=== PATIENT | male | born 1970 | race Caucasian/White ===

== ENCOUNTER 2021-01-29 19:03 | Inpatient (IN) | payer MEDICAID ==
[~2021-01-29] VITALS: Ht 188 cm; Wt 119.3 kg
--- NOTE | 2021-01-29 19:20 | NUR ---
PT IN SOFT 4-POINT RESTRAINTS DUE TO COMBATIVE BEHAVIOR ENROUTE TO ER. PT STILL CONFUSED AND HAD RIPPED OUT IV ENROUTE WELL. RESTRAINTS CONITINUED. DR. CEJA TO PUT IN ORDER.
[2021-01-29] MEDS ORDERED: haloperidol lactate 5mg/ml inj IM ONE (19:40)
[2021-01-29 20:02] LABS: BASOPHILS # (AUTO) 0.1 X10'3 (0-0.2); BASOPHILS % (AUTO) 0.8 % (0-1); EOSINOPHILS % (AUTO) 0.4 % (0-6); HEMOGLOBIN 14.1 g/dl (14.0-17.9); LYMPHOCYTES # (AUTO) 1.2 X10'3 (1.1-4.8); LYMPHOCYTES % (AUTO) 14.5 % (21-51); MEAN CORPUSCULAR HEMOGLOBIN 32.6 PG (27.0-31.0); MEAN CORPUSCULAR HGB CONC 33.4 g/dL (33.0-36.5); MEAN CORPUSCULAR VOLUME 97.6 FL (78-98); MEAN PLATELET VOLUME 9.1 FL (7.4-10.4); MONOCYTES # (AUTO) 0.6 X10'3 (0-0.9); MONOCYTES % (AUTO) 6.8 % (2-12); NEUTROPHILS # (AUTO) 6.6 X10'3 (1.8-7.7); NEUTROPHILS % (AUTO) 77.5 % (42-75); PLATELET COUNT 132 X10'3 (140-440); RED BLOOD COUNT 4.31 X10'6 (4.70-6.10); RED CELL DISTRIBUTION WIDTH 15.3 % (11.5-14.5); WHITE BLOOD COUNT 8.5 X10'3 (4.5-11.0)
[2021-01-29 20:13] LABS: ANION GAP 10 (8-16); BILIRUBIN,TOTAL 0.4 MG/DL (0.1-1.0); BLOOD UREA NITROGEN 99 MG/DL (7-18); BUN/CREATININE RATIO 14.6 (5.4-32.0); CALCIUM 7.3 MG/DL (8.5-10.1); CHLORIDE 111 MMOL/L (99-107); CREATININE 6.79 MG/DL (0.60-1.10); GLUCOSE 105 MG/DL (70-104); POTASSIUM 4.5 MMOL/L (3.5-5.1); SODIUM 146 MMOL/L (135-145); TOTAL CARBON DIOXIDE 24.6 MMOL/L (24-32); TOTAL PROTEIN 6.6 G/DL (6.4-8.2); eGFR 9 ML/MIN
[2021-01-29 20:14] LABS: ALANINE AMINOTRANSFERASE 20 U/L (12-78); ALBUMIN 2.9 G/DL (3.4-5.0); ALBUMIN/GLOBULIN RATIO 0.8 (1.1-1.5); ALKALINE PHOSPHATASE 81 IU/L (46-116); ASPARTATE AMINO TRANSFERASE 24 U/L (10-37)
[2021-01-29 20:22] LABS: CREATINE KINASE 574 U/L (39-308)
[2021-01-29 20:24] LABS: ETHANOL < 0.010 GM/DL (0.0-0.010)
[2021-01-29 21:09] LABS: ABG BASE EXCESS -3.1 mmol/L (-2.0-2.0); ABG HCO3 24.6 mmol/L (22.0-26.0); ABG OXYGEN SATURATION 97.3 % (94-97); ABG PCO2 (T) 55.3 mmHg (35.0-48.0); ABG PO2 (T) 112.1 mmHg (75.0-100.0); ALLEN'S TEST POSITIVE; FCOHb 1.7 % (0.0-3.9); FLOW 10 L/min; FMetHb 0.3 % (0.0-1.5); FO2Hb 95.4 % (94-97); PATIENT TEMPERATURE 37.2; TOTAL HEMOGLOBIN 14.6 G/dl (14.0-18.0)
--- NOTE | 2021-01-29 21:15 | NUR ---
PT IN 4-POINT SOFT RESTRAINTS, CSM INTACT. PT TWITCHING AND STILL ALOC AT THIS TIME. PT BEING MONITORED CLOSELY FOR SAFETY.
[2021-01-29] MEDS ORDERED: magnesium hydroxide 30ml (MOM) UD suspension PO PRN (21:40)
[2021-01-29] MEDS ORDERED: acetaminophen 325mg tablet PO PRN (21:40)
[2021-01-29] MEDS ORDERED: mag hydrox/Alum hydrox/simeth 30ml oral suspension PO PRN (21:40)
--- NOTE | 2021-01-29 21:40 | NUR ---
RESPIRATORY ADVISED DUE TO PT ABG RESULTS THAT PT SHOULD BE ON SIMPLE FACE MASK INSTAEAD OF NON-REBREATHER. RESPIRATORY KEPT PT ON 10L SIMPLE FACE MASK.
--- NOTE | 2021-01-29 21:55 | NUR ---
DR. CEJA TOOK PT O2 DOWN TO 3LPM
--- NOTE | 2021-01-29 22:02 | NUR ---
PT AT BEDSIDE, STATES PT MAY HAVE STARTED TAKING A NEW MEDICATION. PT HAS NOT TAKEN HIS NORMAL MEDICATIONS SINCE FRIDAY. PT ALSO STATES HE DRINKS DAILY 1/3 OF A 5TH OF WHISKEY. PT HAS NOT HAD A DRINK SINCE FRIDAY. PT CONINTUES TO TWITCH AND HAVE PERIODS OF RIGIDITY. PT NOW ANSWERING QUESTIONS APPROPRIATELY AT TIMES. VERBAL ORDER FOR ATIVAN GOTTEN FROM DR. CEJA
[2021-01-29] MEDS ORDERED: LORazepam 2 mg/ml vial IV ONE (22:05)
--- NOTE | 2021-01-29 22:07 | NUR ---
O2 TITRATED TO 5 LTR PER O2 SATS 87%
--- NOTE | 2021-01-29 22:10 | NUR ---
VERBAL ORDER FROM HOSPITALIST FOR 500 CC NS BOLUS AND MCCABE CATHETER
[2021-01-29] MEDS ORDERED: normal saline 1000ML IV soln IVB ONE (22:15)
[2021-01-29] MEDS: normal saline 1000ml 1,000 ML IV SCH (22:17)
[2021-01-29] MEDS ORDERED: METO-539 PO (22:33)
[2021-01-29] MEDS ORDERED: AMIT-189 PO (22:33)
[2021-01-29] MEDS ORDERED: LYR25C PO (22:33)
[2021-01-29] MEDS ORDERED: QUET-1 PO (22:33)
[2021-01-29] MEDS ORDERED: METO50TA7 PO (22:33)
[2021-01-29] MEDS ORDERED: ATOR10TA87 PO (22:33)
[2021-01-29] MEDS ORDERED: AMLO5TAB PO (22:33)
[2021-01-29] MEDS ORDERED: DULO-31 PO (22:33)
[2021-01-29] MEDS ORDERED: sodium bicarbonate (8.4%) 1 mEq/ml syringe IV ONE (22:35)
[2021-01-29] MEDS ORDERED: ATOR20TA PO (22:35)
[2021-01-29] MEDS ORDERED: thiamine inj. 100 MG in normal saline 100ml IV soln 100 ML IV ONE (22:35)
[2021-01-29] MEDS ORDERED: LISI1TAB51 PO (22:35)
[2021-01-29 22:55] LABS: URINE AMPHETAMINE SCREEN NEGATIVE (Neg); URINE BARBITUATE SCREEN NEGATIVE (Neg); URINE BENZODIAZEPINES SCREEN POSITIVE (Neg); URINE CANNABINOID SCREEN NEGATIVE (Neg); URINE COCAINE SCREEN NEGATIVE (Neg); URINE METHADONE SCREEN NEGATIVE (Neg); URINE OPIATE SCREEN POSITIVE (Neg); URINE PHENCYCLIDINE SCREEN NEGATIVE (Neg)
[2021-01-29] MEDS ORDERED: MORP30TA PO (22:57)
--- NOTE | 2021-01-29 23:00 | NUR ---
CSM INTACT FOR PT STILL IN RESTRAINTS. PT ABLE TO ANSWER QUESTIONS AT TIMES BUT OVERALL STILL MOSTLY CONFUSED.
[2021-01-29] MEDS: LORazepam 2 mg/ml vial IV PRN (23:27)
--- NOTE | 2021-01-30 01:30 | NUR ---
CSM INTACT IN ALL EXTREMITIES. PT IN RESTRAINTS STILL FOR ALOC AND PULLING AT LINES.
[2021-01-30] MEDS ORDERED: MSC30T PO (02:04)
[2021-01-30] MEDS ORDERED: PREG150C46 PO ×2 (02:07)
[2021-01-30] MEDS: LORazepam 2 mg/ml vial IV PRN ×7 (02:11→22:09)
--- NOTE | 2021-01-30 02:36 | NUR ---
PT FOUND SITTING ON END OF BED, STILL IN RESTRAINTS. PT ADVISED TO LAY DOWN AND PT WAS COOPERATIVE. CSM INTACT AND PT IN RESTRAINTS STILL. WILL TRY TO UNLATCH RESTRAINTS IF PT BEHAVIOR ALLOWS.
--- NOTE | 2021-01-30 02:39 | NUR ---
PT FEET RELEASED FROM RESTRAINTS. WILL CONTINUE TO MONITOR.
[2021-01-30 04:14] LABS: BASOPHILS # (AUTO) 0.1 X10'3 (0-0.2); LYMPHOCYTES # (AUTO) 1.7 X10'3 (1.1-4.8); MEAN PLATELET VOLUME 9.5 FL (7.4-10.4); PLATELET COUNT 139 X10'3 (140-440); RED BLOOD COUNT 4.35 X10'6 (4.70-6.10)
[2021-01-30 04:15] LABS: BASOPHILS % (AUTO) 0.9 % (0-1); EOSINOPHILS # (AUTO) 0.1 X10'3 (0-0.9); EOSINOPHILS % (AUTO) 0.6 % (0-6); HEMATOCRIT 41.8 % (42.0-52.0); HEMOGLOBIN 14.1 g/dl (14.0-17.9); LYMPHOCYTES % (AUTO) 15.2 % (21-51); MEAN CORPUSCULAR HEMOGLOBIN 32.4 PG (27.0-31.0); MEAN CORPUSCULAR HGB CONC 33.7 g/dL (33.0-36.5); MEAN CORPUSCULAR VOLUME 96.2 FL (78-98); MONOCYTES # (AUTO) 0.8 X10'3 (0-0.9); MONOCYTES % (AUTO) 7.5 % (2-12); NEUTROPHILS # (AUTO) 8.5 X10'3 (1.8-7.7); NEUTROPHILS % (AUTO) 75.8 % (42-75); RED CELL DISTRIBUTION WIDTH 15.3 % (11.5-14.5); WHITE BLOOD COUNT 11.2 X10'3 (4.5-11.0)
[2021-01-30] MEDS: normal saline 1000ml 1,000 ML IV SCH ×2 (04:21→14:34)
[2021-01-30 05:25] LABS: ALANINE AMINOTRANSFERASE 18 U/L (12-78); ALBUMIN/GLOBULIN RATIO 0.8 (1.1-1.5); ANION GAP 10 (8-16); ASPARTATE AMINO TRANSFERASE 27 U/L (10-37); BILIRUBIN,TOTAL 0.4 MG/DL (0.1-1.0); BLOOD UREA NITROGEN 83 MG/DL (7-18); BUN/CREATININE RATIO 23.2 (5.4-32.0); CALCIUM 7.8 MG/DL (8.5-10.1); CHLORIDE 113 MMOL/L (99-107); CREATININE 3.57 MG/DL (0.60-1.10); GLUCOSE 103 MG/DL (70-104); MAGNESIUM 1.9 MG/DL (1.5-2.4); PHOSPHORUS 3.4 MG/DL (2.3-4.5); POTASSIUM 4.3 MMOL/L (3.5-5.1); SODIUM 151 MMOL/L (135-145); TOTAL CARBON DIOXIDE 28.3 MMOL/L (24-32); TOTAL PROTEIN 6.7 G/DL (6.4-8.2); eGFR 18 ML/MIN
[2021-01-30 05:26] LABS: ALKALINE PHOSPHATASE 82 IU/L (46-116); AMYLASE 93 U/L (25-115); LIPASE 77 U/L (73-393)
--- NOTE | 2021-01-30 06:38 | NUR ---
Patient asleep at this time, on two point soft restraint, capillary refill less than 2 seconds, oxygen mask 6L sating 96-99%.
--- NOTE | 2021-01-30 07:50 | NUR ---
1500 clear urine out from braun.
[2021-01-30] MEDS: multivitamins, therapeutics tablet PO SCH (08:00)
[2021-01-30] MEDS: folic acid 1mg/0.2ml inj IV SCH (08:00)
[2021-01-30] MEDS ORDERED: folic acid inj. 2 MG, thiamine inj. 100 MG, MVI, adult No.4 with vit. K 10 ML in dextro... IV SCH ×4 (08:00)
[2021-01-30] MEDS: thiamine inj. 100 MG in normal saline 100ml IV soln 100 ML IV SCH (08:19)
[2021-01-30] MEDS: heparin, porcine 5000 units/ml vial SQ SCH ×2 (08:19→20:10)
[2021-01-30] MEDS: morphine 2 MG/ML inj. syringe IV PRN ×3 (10:37→21:04)
[2021-01-30 11:00] VITALS: BP 135/82
--- NOTE | 2021-01-30 13:43 | NUR ---
While Primary RN Jace was on lunch I was watching his patients as resource RN. I went into patients room to do restraints with at bedside. Patients wrist restraints released and skin assessed done patient skin is intact and no signs of skin issues. Patient was diaphoretic and having upper body twitching. Patient is able to answer questions but very confused. At this time patient made a statement that was not very clear due to him having a simple oxygen mask on and somewhat slurring his words. Patient statement was something to the effect of him wanting to shoot himself. I asked patient why he would want to harm himself and he stated " because nobody cares.) I spoke to Tegan with delinquency prevention social worker who is aware when I went into ask patient again if he wanted to harm himself? Patient stated, "No" I asked patient if he wanted to harm others and he stated "No", I asked him if he has a history of depression patient stated, "No" I asked patient if he takes medication for depression, Patient stated "No". I told patient he can go ahead and go to sleep to [facility], patient again stated, "No". I called Tegan with visitor services assistant back and she stated at this time she does not feel we need a sitter on patient. However, she feels we should continue to evaluate patient for suicidal ideations. Primary RN Jace torres and stripper apprenticeRADHA torres.
[2021-01-30] MEDS: ondansetron/PF 4mg/2ml inj IV PRN (15:17)
--- NOTE | 2021-01-30 18:25 | NUR ---
Patient in room BOB 354. I have received report from RADHA Mccormick and had the opportunity to ask questions and assume patient care.
[2021-01-30 19:00] VITALS: BP 171/96
[2021-01-30] MEDS ORDERED: ondansetron/PF 4mg/2ml inj IV ONE (20:10)
--- NOTE | 2021-01-30 22:00 | NUR ---
Pt thrashing in bed and breaking restraints. Ativan and pain medications administered with no change. Security in room to assist with replacement of restraints from behavioral health. MD notifed, requesting ABG, chest xray and 0.1 clonidine and start bed side swallow as patient has not had any PO intake as of yet. Several from RT came up to get ABG, unable due to patients strength and thrashing. MD notified. Received 1x order ativan. Patient calmed and ABG and cxr obtained. Results called to MD. Will place order for 1x abx. RT increased O2 to 6L NC and added humidification. Patient not will to attempt drink or take clonidine. MD aware.
[2021-01-30] MEDS ORDERED: cloNIDine 0.1 mg tablet PO ONE (22:05)
[2021-01-30] MEDS ORDERED: LORazepam 2 mg/ml vial IV ONE (22:20)
[2021-01-30 22:25] VITALS: BP 160/91
[2021-01-30 22:32] LABS: ABG OXYGEN SATURATION 87.2 % (94-97); ABG PCO2 (T) 50.6 mmHg (35.0-48.0); ABG PO2 (T) 56.2 mmHg (75.0-100.0); ALLEN'S TEST POSITIVE; FLOW 5 L/min; FMetHb 0.1 % (0.0-1.5); FO2Hb 86.2 % (94-97); PATIENT TEMPERATURE 38.3; TOTAL HEMOGLOBIN 15.3 G/dl (14.0-18.0)
[2021-01-30] MEDS ORDERED: CefTRIAXone 2gm/D5W 50ml BAG 50 ML IV ONE (23:20)
[2021-01-31] VITALS (8 sets, daily range): BP systolic 150–214; BP diastolic 87–183
--- NOTE | 2021-01-31 00:30 | NUR ---
Pt continues to thrash around in bed after a short rest. SBP sustaining 190's to 207. MD notified. Received order for hydralazine scheduled for 24 hours.
[2021-01-31] MEDS: hydrALAZINE 20mg/ml inj. IV SCH ×5 (00:36→21:11)
[2021-01-31] MEDS: normal saline 1000ml 1,000 ML IV SCH (00:41)
[2021-01-31] MEDS: LORazepam 2 mg/ml vial IV PRN ×17 (00:41→23:23)
--- NOTE | 2021-01-31 01:39 | NUR ---
Pt continues to fight restraints, is now spitting, speaking english to rim fire charger operator. Unable to reassess BP at this time. Will continue to monitor.
[2021-01-31] MEDS: morphine 2 MG/ML inj. syringe IV PRN ×4 (02:35→17:37)
--- NOTE | 2021-01-31 06:31 | NUR ---
Problems reprioritized. Patient report given, questions answered & plan of care reviewed with RADHA Mcgee.
--- NOTE | 2021-01-31 06:35 | NUR ---
Patient in room BOB 354. I have received report from RADHA Mauro and had the opportunity to ask questions and assume patient care.
--- NOTE | 2021-01-31 06:42 | NUR ---
PAGER ID: [phone] MESSAGE: [id number]- Satish Harrison- only getting Ativan q2hr 1mg. Needs more often. Very strong and pulling on restraints. Ok to put on severe etoh protocol? Thank you- Everardo [phone]
[2021-01-31 06:43] LABS: BASOPHILS # (AUTO) 0.1 X10'3 (0-0.2); BASOPHILS % (AUTO) 1.3 % (0-1); EOSINOPHILS % (AUTO) 0.1 % (0-6); HEMATOCRIT 44.2 % (42.0-52.0); HEMOGLOBIN 14.7 g/dl (14.0-17.9); LYMPHOCYTES # (AUTO) 1.6 X10'3 (1.1-4.8); MEAN CORPUSCULAR HEMOGLOBIN 32.2 PG (27.0-31.0); MEAN CORPUSCULAR HGB CONC 33.2 g/dL (33.0-36.5); MEAN CORPUSCULAR VOLUME 97.2 FL (78-98); MEAN PLATELET VOLUME 9.6 FL (7.4-10.4); MONOCYTES # (AUTO) 0.8 X10'3 (0-0.9); MONOCYTES % (AUTO) 8.5 % (2-12); NEUTROPHILS # (AUTO) 6.5 X10'3 (1.8-7.7); NEUTROPHILS % (AUTO) 72.1 % (42-75); PLATELET COUNT 131 X10'3 (140-440); RED BLOOD COUNT 4.55 X10'6 (4.70-6.10); RED CELL DISTRIBUTION WIDTH 15.3 % (11.5-14.5); WHITE BLOOD COUNT 9.1 X10'3 (4.5-11.0)
[2021-01-31] MEDS ORDERED: thiamine inj. 100 MG in normal saline 100ml IV soln 100 ML IV ONE (06:45)
[2021-01-31] MEDS ORDERED: haloperidol 5mg tablet PO PRN (06:45)
[2021-01-31 07:03] LABS: ALANINE AMINOTRANSFERASE 28 U/L (12-78); ALBUMIN 3.4 G/DL (3.4-5.0); ALBUMIN/GLOBULIN RATIO 0.9 (1.1-1.5); ALKALINE PHOSPHATASE 77 IU/L (46-116); AMYLASE 84 U/L (25-115); ASPARTATE AMINO TRANSFERASE 36 U/L (10-37); BILIRUBIN,TOTAL 0.4 MG/DL (0.1-1.0); BLOOD UREA NITROGEN 48 MG/DL (7-18); BUN/CREATININE RATIO 32.7 (5.4-32.0); CALCIUM 8.7 MG/DL (8.5-10.1); CREATININE 1.47 MG/DL (0.60-1.10); GLUCOSE 109 MG/DL (70-104); LIPASE 164 U/L (73-393); PHOSPHORUS 2.4 MG/DL (2.3-4.5); TOTAL CARBON DIOXIDE 24.9 MMOL/L (24-32); TOTAL PROTEIN 7.4 G/DL (6.4-8.2); eGFR 51 ML/MIN
[2021-01-31 07:26] LABS: ANION GAP 18 (8-16); CHLORIDE 118 MMOL/L (99-107); POTASSIUM 4.2 MMOL/L (3.5-5.1)
[2021-01-31 07:37] LABS: SODIUM 161 MMOL/L (135-145)
--- NOTE | 2021-01-31 07:38 | NUR ---
Per lab, critical lab result of Na = 161. RADHA Mcgee notified.
--- NOTE | 2021-01-31 07:42 | NUR ---
PAGER ID: [phone] MESSAGE: SaritaA- Satish Harrison- Critical NA of [address] [place] [address]
[2021-01-31] MEDS: multivitamins, therapeutics tablet PO SCH (08:00)
[2021-01-31] MEDS ORDERED: atenolol 25mg tablet PO SCH (08:00)
[2021-01-31] MEDS ORDERED: folic acid inj. 2 MG, thiamine inj. 100 MG, MVI, adult No.4 with vit. K 10 ML in dextro... IV SCH ×4 (08:00)
[2021-01-31] MEDS: thiamine inj. 100 MG in normal saline 100ml IV soln 100 ML IV SCH (08:31)
[2021-01-31] MEDS: dextrose 5%-water 1,000 ML IV SCH ×3 (08:31→22:09)
[2021-01-31] MEDS: folic acid 1mg/0.2ml inj IV SCH (08:32)
[2021-01-31] MEDS: heparin, porcine 5000 units/ml vial SQ SCH ×2 (08:33→22:15)
[2021-01-31] MEDS: acetaminophen 650mg rectal suppository RC PRN (08:55)
[2021-01-31] MEDS: haloperidol lactate 5mg/ml inj IM PRN ×2 (13:18→23:32)
--- NOTE | 2021-01-31 14:27 | NUR ---
PAGER ID: [phone] MESSAGE: [id number]- Satish Harrison- Critical Na of 159. This AM was 161. Next draw recheck will be at 1800.- Everardo [phone]
--- NOTE | 2021-01-31 18:20 | NUR ---
Problems reprioritized. Patient report given, questions answered & plan of care reviewed with RADHA Cooley.
--- NOTE | 2021-01-31 18:30 | NUR ---
Patient in room BOB 354. I have received report from DEYA GARCIA and had the opportunity to ask questions and assume patient care.
--- NOTE | 2021-01-31 18:55 | NUR ---
LAB CALLED FOR CRITICAL NA 157 WHICH IS BETTER THAN PREVIOUS ONES [address] GONCALVES TO LET HER KNOW OF THE RESULT.
[2021-02-01] VITALS (7 sets, daily range): BP systolic 106–214; BP diastolic 78–127
[2021-02-01] MEDS: LORazepam 2 mg/ml vial IV PRN ×16 (01:36→22:02)
[2021-02-01] MEDS: hydrALAZINE 20mg/ml inj. IV SCH ×4 (02:00→20:11)
[2021-02-01] MEDS: dextrose 5%-water 1,000 ML IV SCH ×3 (04:34→12:15)
[2021-02-01 06:27] LABS: BASOPHILS # (AUTO) 0.1 X10'3 (0-0.2); EOSINOPHILS % (AUTO) 0 % (0-6); HEMOGLOBIN 15.2 g/dl (14.0-17.9); LYMPHOCYTES # (AUTO) 2.1 X10'3 (1.1-4.8); LYMPHOCYTES % (AUTO) 20.8 % (21-51); MEAN CORPUSCULAR HEMOGLOBIN 33.1 PG (27.0-31.0); MEAN CORPUSCULAR HGB CONC 33.8 g/dL (33.0-36.5); MEAN CORPUSCULAR VOLUME 97.7 FL (78-98); MONOCYTES # (AUTO) 0.9 X10'3 (0-0.9); MONOCYTES % (AUTO) 9.2 % (2-12); PLATELET COUNT 130 X10'3 (140-440); RED CELL DISTRIBUTION WIDTH 15.4 % (11.5-14.5); WHITE BLOOD COUNT 10.2 X10'3 (4.5-11.0)
--- NOTE | 2021-02-01 06:30 | NUR ---
Problems reprioritized. Patient report given, questions answered & plan of care reviewed with DEYA GARCIA.
[2021-02-01 06:45] LABS: ALANINE AMINOTRANSFERASE 39 U/L (12-78); ALBUMIN 3.4 G/DL (3.4-5.0); ALBUMIN/GLOBULIN RATIO 0.8 (1.1-1.5); ALKALINE PHOSPHATASE 79 IU/L (46-116); AMYLASE 68 U/L (25-115); ANION GAP 15 (8-16); ASPARTATE AMINO TRANSFERASE 86 U/L (10-37); BILIRUBIN,TOTAL 0.8 MG/DL (0.1-1.0); BLOOD UREA NITROGEN 26 MG/DL (7-18); BUN/CREATININE RATIO 18.4 (5.4-32.0); CALCIUM 8.9 MG/DL (8.5-10.1); CHLORIDE 116 MMOL/L (99-107); CREATININE 1.41 MG/DL (0.60-1.10); GLUCOSE 106 MG/DL (70-104); LIPASE 157 U/L (73-393); MAGNESIUM 1.4 MG/DL (1.5-2.4); POTASSIUM 3.5 MMOL/L (3.5-5.1); TOTAL CARBON DIOXIDE 25.3 MMOL/L (24-32); TOTAL PROTEIN 7.5 G/DL (6.4-8.2); eGFR 53 ML/MIN
[2021-02-01 06:50] LABS: SODIUM 156 MMOL/L (135-145)
[2021-02-01 06:51] LABS: PHOSPHORUS 1.2 MG/DL (2.3-4.5)
--- NOTE | 2021-02-01 06:53 | NUR ---
PAGER ID: [phone] MESSAGE: SaritaA- Satish Harrison- Critical Na of 156 was 157, phos 1.2- [facility] [id number]
[2021-02-01] MEDS: folic acid 1mg/0.2ml inj IV SCH (07:40)
[2021-02-01] MEDS: heparin, porcine 5000 units/ml vial SQ SCH ×2 (07:40→20:11)
[2021-02-01] MEDS: thiamine inj. 100 MG in normal saline 100ml IV soln 100 ML IV SCH (07:40)
[2021-02-01] MEDS: morphine 2 MG/ML inj. syringe IV PRN ×2 (07:48→22:06)
[2021-02-01] MEDS: multivitamins, therapeutics tablet PO SCH (07:51)
--- NOTE | 2021-02-01 08:39 | NUR ---
PAGER ID: [phone] MESSAGE: [id number]- Satish Harrison- Critical Na 156, Phos 1.2. - [place] [phone]
[2021-02-01] MEDS ORDERED: potassium phosphate inj 30 MMOL in normal saline 500ml IV soln 500 ML IV ONE (11:45)
[2021-02-01] MEDS: acetaminophen 650mg rectal suppository RC PRN (12:15)
--- NOTE | 2021-02-01 12:27 | NUR ---
PAGER ID: [phone] MESSAGE: Saritaa- Satish Harrison- BP is 214/12/ HR 128. Hydralazine 20mg q6hr was Dc'd last night. Do you want to restart? Thank you- Everardo 6498
--- NOTE | 2021-02-01 14:37 | NUR ---
PAGER ID: [phone] MESSAGE: [id number]- temp 101.6 after Tylenol supp. was given at 1215. BP still elevated after hydralazine 20mg given at 1235 it is now 183/119. Any new orders?- Everardo 0495
--- NOTE | 2021-02-01 15:03 | NUR ---
PAGER ID: [phone] MESSAGE: [id number] Satish Harrison- temp 101.6 after Tylenol supp. was given at 1215. BP still elevated after hydralazine 20mg given at 1235 it is now 183/119. Any new orders?- Everardo 2645
[2021-02-01] MEDS ORDERED: cloNIDine 0.2 MG/24 HR patch (7 day patch) TD ONE (15:10)
[2021-02-01] MEDS ORDERED: acetaminophen 650mg rectal suppository RC ONE (15:10)
--- NOTE | 2021-02-01 16:54 | NUR ---
PAGER ID: [phone] MESSAGE: 354- Satish Harrison- 0.2mg clonidine patch placed at 1540. BP is now 203/130 with HR 136. ANy new orders before transfer to [facility] 7900
[2021-02-01] MEDS ORDERED: metoprolol tartrate 1mg/ml inj IV ONE (17:00)
--- NOTE | 2021-02-01 17:06 | NUR ---
Problems reprioritized. Patient report given, questions answered & plan of care reviewed with RADHA Weinstein.
[2021-02-01] MEDS ORDERED: furosemide 40mg/4ml inj IV ONE (17:10)
[2021-02-01] MEDS ORDERED: diltiazem 5mg/ml 5ml inj. IV ONE (17:10)
[2021-02-01] MEDS ORDERED: PERFLUTREN PROTEIN-A MICROSPHR (Optison) 0.22 MG/ML 3ML VIAL IV ONE (17:10)
--- NOTE | 2021-02-01 17:24 | NUR ---
Patient transferred to room 3017B with all personal belongings via bed. Receiving RN Corinna at bedside.
[2021-02-01] MEDS: haloperidol lactate 5mg/ml inj IM PRN (17:50)
[2021-02-01 19:47] LABS: ABG BASE EXCESS 2.4 mmol/L (-2.0-2.0); ABG HCO3 24.9 mmol/L (22.0-26.0); ABG OXYGEN SATURATION 93.3 % (94-97); ABG PO2 (T) 60.6 mmHg (75.0-100.0); FCOHb 0.8 % (0.0-3.9); FLOW 6 L/min; FMetHb 0.1 % (0.0-1.5); FO2Hb 92.5 % (94-97); TOTAL HEMOGLOBIN 17.8 G/dl (14.0-18.0)
[2021-02-01] MEDS ORDERED: haloperidol lactate 5mg/ml inj IM ONE (23:45)
[2021-02-02] VITALS (7 sets, daily range): BP systolic 136–190; BP diastolic 88–125
[2021-02-02] MEDS: dextrose 5%-water 1,000 ML IV SCH ×3 (00:25→23:45)
[2021-02-02] MEDS ORDERED: metoprolol tartrate 1mg/ml inj IV ONE (00:30)
[2021-02-02] MEDS: hydrALAZINE 20mg/ml inj. IV SCH ×5 (01:21→23:45)
[2021-02-02] MEDS: LORazepam 2 mg/ml vial IV PRN ×4 (01:21→20:45)
[2021-02-02] MEDS: diltiazem-NS 100mg/100ml 100 ML IV SCH ×3 (03:43→19:22)
[2021-02-02] MEDS: haloperidol lactate 5mg/ml inj IM PRN ×4 (03:46→22:54)
[2021-02-02] MEDS ORDERED: labetalol 20mg/4ml (5mg/ml) syringe IV ONE (04:50)
[2021-02-02 05:10] LABS: BASOPHILS # (AUTO) 0.1 X10'3 (0-0.2); BASOPHILS % (AUTO) 0.6 % (0-1); EOSINOPHILS % (AUTO) 0 % (0-6); HEMATOCRIT 52.1 % (42.0-52.0); HEMOGLOBIN 17.4 g/dl (14.0-17.9); LYMPHOCYTES # (AUTO) 2.2 X10'3 (1.1-4.8); LYMPHOCYTES % (AUTO) 14.9 % (21-51); MEAN CORPUSCULAR HEMOGLOBIN 32.7 PG (27.0-31.0); MEAN CORPUSCULAR HGB CONC 33.4 g/dL (33.0-36.5); MEAN CORPUSCULAR VOLUME 97.9 FL (78-98); MEAN PLATELET VOLUME 10.1 FL (7.4-10.4); MONOCYTES # (AUTO) 1.3 X10'3 (0-0.9); MONOCYTES % (AUTO) 9.1 % (2-12); NEUTROPHILS # (AUTO) 11.1 X10'3 (1.8-7.7); NEUTROPHILS % (AUTO) 75.4 % (42-75); PLATELET COUNT 135 X10'3 (140-440); RED BLOOD COUNT 5.33 X10'6 (4.70-6.10); RED CELL DISTRIBUTION WIDTH 15.2 % (11.5-14.5); WHITE BLOOD COUNT 14.7 X10'3 (4.5-11.0)
[2021-02-02 05:26] LABS: ALANINE AMINOTRANSFERASE 55 U/L (12-78); ALBUMIN 3.4 G/DL (3.4-5.0); ALBUMIN/GLOBULIN RATIO 0.8 (1.1-1.5); ALKALINE PHOSPHATASE 80 IU/L (46-116); AMYLASE 38 U/L (25-115); ANION GAP 15 (8-16); ASPARTATE AMINO TRANSFERASE 127 U/L (10-37); BLOOD UREA NITROGEN 26 MG/DL (7-18); BUN/CREATININE RATIO 19.7 (5.4-32.0); CALCIUM 8.8 MG/DL (8.5-10.1); CHLORIDE 118 MMOL/L (99-107); CREATININE 1.32 MG/DL (0.60-1.10); GLUCOSE 126 MG/DL (70-104); LIPASE 103 U/L (73-393); MAGNESIUM 1.5 MG/DL (1.5-2.4); PHOSPHORUS 3.2 MG/DL (2.3-4.5); POTASSIUM 3.4 MMOL/L (3.5-5.1); TOTAL PROTEIN 7.5 G/DL (6.4-8.2); eGFR 58 ML/MIN
[2021-02-02 05:29] LABS: SODIUM 157 MMOL/L (135-145)
--- NOTE | 2021-02-02 05:35 | NUR ---
Pt HR/BP was elevated this shift. Pt remained agitated and tremulous with Ativan and Haldol administration. Four calls made to Dr. Diaz. See EMAR for orders.
--- NOTE | 2021-02-02 06:00 | NUR ---
Patient in room PCU 3017. I have received report from NATHANIEL GARCIA and had the opportunity to ask questions and assume patient care.
[2021-02-02] MEDS ORDERED: LORazepam 1 MG tablet PO PRN (06:45)
[2021-02-02] MEDS ORDERED: LORazepam 2 mg/ml vial IV PRN (06:45)
[2021-02-02] MEDS: multivitamins, therapeutics tablet PO SCH (07:40)
[2021-02-02] MEDS: folic acid 1mg/0.2ml inj IV SCH (08:00)
[2021-02-02] MEDS: thiamine inj. 100 MG in normal saline 100ml IV soln 100 ML IV SCH (09:14)
[2021-02-02] MEDS: heparin, porcine 5000 units/ml vial SQ SCH ×2 (09:14→20:46)
--- NOTE | 2021-02-02 11:50 | NUR ---
PAGER ID: [phone] MESSAGE: [id number] KEN NICHOLE PT IS NOW RUNNING FEVER OF 101.6, TYLENOL HAS BEEN GIVEN, HE IS ALSO TACH AT 134-140, BP GETTING BETTER AT 158/106. DO YOU WANT TO START THE SEPSIS PROTOCOL? REYNALDO 1559
--- NOTE | 2021-02-02 12:51 | NUR ---
PAGER ID: [phone] MESSAGE: [id number] KEN TEMP 102.9 AFTER TYLENOL. HR REMAINS 130 DESPITE CARD GTT. DULCE MARIE
[2021-02-02] MEDS: levoFLOXACIN-Levaquin 500mg/D5 100 ML IV SCH (14:30)
--- NOTE | 2021-02-02 14:50 | NUR ---
PAGER ID: [phone] MESSAGE: [id number] KEN NICHOLE I SEEN THE ORDER TO PUT PT ON 10MG OF CARDIZEM HE HAS BEEN RUNNING AT 15MG OF CARDIZEM DO YOU WANT ME TO DECREASE IT? CAN I ORDER AN AMMONIA LEVEL ON HIM? REYNALDO [phone]
[2021-02-02 15:21] LABS: ABG BASE EXCESS 2.2 mmol/L (-2.0-2.0); ABG HCO3 22.9 mmol/L (22.0-26.0); ABG OXYGEN SATURATION 94.3 % (94-97); ABG PCO2 (T) 29.8 mmHg (35.0-48.0); ABG PO2 (T) 71.6 mmHg (75.0-100.0); ALLEN'S TEST POSITIVE; FCOHb 0.2 % (0.0-3.9); FLOW 6 L/min; FMetHb 0.1 % (0.0-1.5); PATIENT TEMPERATURE 38.8; TOTAL HEMOGLOBIN 18.7 G/dl (14.0-18.0)
--- NOTE | 2021-02-02 18:03 | NUR ---
PAGER ID: [phone] MESSAGE: [id number] KEN. HE HAS TO STAY IN PCU. NO NURSES IN ICU OR CICU FOR HIM. DULCE MARIE
[2021-02-03] VITALS: BP 136/92
[2021-02-03] MEDS: LORazepam 2 mg/ml vial IV PRN ×3 (01:23→22:39)
[2021-02-03] MEDS: metoprolol tartrate 1mg/ml inj IV SCH ×4 (01:23→22:15)
[2021-02-03 02:00] VITALS: BP 131/76
[2021-02-03 04:00] VITALS: BP 159/89
[2021-02-03] MEDS: dextrose 5%-water 1,000 ML IV SCH ×3 (05:04→19:31)
--- NOTE | 2021-02-03 05:06 | NUR ---
May, Pt's , was updated on pt status.
--- NOTE | 2021-02-03 06:00 | NUR ---
Patient in room PCU 3017. I have received report from NATHANIEL GARCIA and had the opportunity to ask questions and assume patient care.
[2021-02-03 07:16] LABS: BASOPHILS # (AUTO) 0.1 X10'3 (0-0.2); LYMPHOCYTES # (AUTO) 1.9 X10'3 (1.1-4.8); MONOCYTES # (AUTO) 0.9 X10'3 (0-0.9); MONOCYTES % (AUTO) 6.7 % (2-12); PLATELET COUNT 119 X10'3 (140-440)
[2021-02-03 07:17] LABS: BASOPHILS % (AUTO) 0.6 % (0-1); EOSINOPHILS % (AUTO) 0.1 % (0-6); HEMATOCRIT 50.3 % (42.0-52.0); HEMOGLOBIN 16.8 g/dl (14.0-17.9); LYMPHOCYTES % (AUTO) 13.7 % (21-51); MEAN CORPUSCULAR HEMOGLOBIN 32.1 PG (27.0-31.0); MEAN CORPUSCULAR HGB CONC 33.4 g/dL (33.0-36.5); NEUTROPHILS # (AUTO) 11.2 X10'3 (1.8-7.7); NEUTROPHILS % (AUTO) 78.9 % (42-75); RED BLOOD COUNT 5.23 X10'6 (4.70-6.10); RED CELL DISTRIBUTION WIDTH 15.1 % (11.5-14.5); WHITE BLOOD COUNT 14.2 X10'3 (4.5-11.0)
[2021-02-03 07:26] LABS: ALANINE AMINOTRANSFERASE 67 U/L (12-78); ALBUMIN/GLOBULIN RATIO 0.8 (1.1-1.5); ALKALINE PHOSPHATASE 67 IU/L (46-116); AMYLASE 26 U/L (25-115); ANION GAP 12 (8-16); ASPARTATE AMINO TRANSFERASE 122 U/L (10-37); BILIRUBIN,TOTAL 0.8 MG/DL (0.1-1.0); BLOOD UREA NITROGEN 33 MG/DL (7-18); BUN/CREATININE RATIO 26.6 (5.4-32.0); CALCIUM 8.8 MG/DL (8.5-10.1); CHLORIDE 117 MMOL/L (99-107); CREATININE 1.24 MG/DL (0.60-1.10); GLUCOSE 137 MG/DL (70-104); LIPASE 88 U/L (73-393); MAGNESIUM 1.6 MG/DL (1.5-2.4); PHOSPHORUS 3.4 MG/DL (2.3-4.5); POTASSIUM 3.5 MMOL/L (3.5-5.1); TOTAL CARBON DIOXIDE 26.4 MMOL/L (24-32); eGFR 62 ML/MIN
[2021-02-03 07:27] LABS: SODIUM 155 MMOL/L (135-145)
[2021-02-03 07:34] VITALS: BP 139/90
[2021-02-03] MEDS: levoFLOXACIN-Levaquin 500mg/D5 100 ML IV SCH (09:53)
[2021-02-03] MEDS: thiamine inj. 100 MG in normal saline 100ml IV soln 100 ML IV SCH (09:53)
[2021-02-03] MEDS: heparin, porcine 5000 units/ml vial SQ SCH ×2 (09:54→22:14)
[2021-02-03] MEDS: hydrALAZINE 20mg/ml inj. IV SCH ×3 (09:54→22:16)
[2021-02-03] MEDS: folic acid 1mg/0.2ml inj IV SCH (09:55)
[2021-02-03] MEDS: acetaminophen 325mg tablet PO PRN ×3 (09:55→22:18)
[2021-02-03] MEDS: multivitamins, therapeutics tablet PO SCH (09:55)
--- NOTE | 2021-02-03 10:58 | NUR ---
Initial: Pt admit for acute renal failure and metabolic acidosis with hypernatremia and EtOH hx. Pt currently receiving routine Thiamine, Folic acid, and MVI. Pt documented as A/O x 1, confused, resistive to care, agitated, and combative, currently in restraints. Initial BSS was performed 01/[address] [facility] NPO as PO intake is unsafe due to cognitive level, however renal diet remains active in EMR. Recommend diet change to NPO per [facility], dietary notified. Noted an NG tube was placed 02/02 with the tip residing in the upper stomach per KUB. Pt receiving 200 mL water flush Q4H with D5 at 150 mL/hr providing 612 kcal/day. Attempted TC to RN however RN was unavailable. D/w floor RN recommendation for TF given pt NPO per [facility] and already with an NG tube in place, RN reports pt is waking up and may not need alternative nutrition. Pt would benefit from TF to assist with meeting estimated nutrient needs given now day 5 with inadequate nutrition and continued AMS. LBM 02/02 per I&O. Will continue to follow closely. Recommendations: 1) Advance to Na restricted diet as medically indicated if able to advance PO diet, pending f/u BSS with ST 2) Initiate nutrition support via NG tube if unable to advance PO diet, currently day 5 NPO 3) 200 mL water flush Q4H via NG tube per MD; monitor serum Na 4) Continue routine Thiamine, Folic acid, and MVI for EtOH hx 5) Bowel care per rx 6) Scaled weight this admit; weekly scaled weights thereafter Addendum: 02/03/21 at [address] Amended: Links added.
[2021-02-03] MEDS: morphine 2 MG/ML inj. syringe IV PRN (11:32)
[2021-02-03] MEDS: haloperidol lactate 5mg/ml inj IM PRN (11:32)
[2021-02-03 12:09] VITALS: BP 145/89
[2021-02-03 14:26] LABS: ANION GAP 13 (8-16); BLOOD UREA NITROGEN 31 MG/DL (7-18); BUN/CREATININE RATIO 24.4 (5.4-32.0); CALCIUM 8.9 MG/DL (8.5-10.1); CHLORIDE 116 MMOL/L (99-107); CREATININE 1.27 MG/DL (0.60-1.10); GLUCOSE 125 MG/DL (70-104); POTASSIUM 3.6 MMOL/L (3.5-5.1); SODIUM 154 MMOL/L (135-145); TOTAL CARBON DIOXIDE 25.5 MMOL/L (24-32); eGFR 60 ML/MIN
[2021-02-03 16:20] VITALS: BP 139/85
[2021-02-03 20:19] LABS: ANION GAP 12 (8-16); BLOOD UREA NITROGEN 26 MG/DL (7-18); BUN/CREATININE RATIO 22.2 (5.4-32.0); CALCIUM 8.9 MG/DL (8.5-10.1); CHLORIDE 114 MMOL/L (99-107); CREATININE 1.17 MG/DL (0.60-1.10); GLUCOSE 110 MG/DL (70-104); POTASSIUM 3.6 MMOL/L (3.5-5.1); SODIUM 150 MMOL/L (135-145); TOTAL CARBON DIOXIDE 23.7 MMOL/L (24-32); eGFR 66 ML/MIN
[2021-02-04 02:00] VITALS: BP 143/103
[2021-02-04] MEDS: hydrALAZINE 20mg/ml inj. IV SCH ×4 (02:54→20:39)
[2021-02-04] MEDS: metoprolol tartrate 1mg/ml inj IV SCH ×4 (02:55→20:39)
--- NOTE | 2021-02-04 06:25 | NUR ---
Patient in room PCU 3017. I have received report from RADHA Griffith and had the opportunity to ask questions and assume patient care.
[2021-02-04] MEDS ORDERED: LORazepam 1 MG tablet PO PRN (06:45)
[2021-02-04] MEDS ORDERED: LORazepam 2 mg/ml vial IV PRN ×2 (06:45→12:00)
[2021-02-04 08:34] LABS: ANION GAP 13 (8-16); BLOOD UREA NITROGEN 26 MG/DL (7-18); BUN/CREATININE RATIO 22.6 (5.4-32.0); CALCIUM 8.8 MG/DL (8.5-10.1); CHLORIDE 109 MMOL/L (99-107); CREATININE 1.15 MG/DL (0.60-1.10); GLUCOSE 114 MG/DL (70-104); POTASSIUM 3.3 MMOL/L (3.5-5.1); SODIUM 146 MMOL/L (135-145); TOTAL CARBON DIOXIDE 23.6 MMOL/L (24-32); eGFR 68 ML/MIN
--- NOTE | 2021-02-04 09:16 | NUR ---
paged md phoenix at about 0900 to report 6 beat run of vtach which was new for this pt. sbp 140's, hr 90-115, pt sleeping.
[2021-02-04] MEDS: heparin, porcine 5000 units/ml vial SQ SCH ×2 (09:22→20:40)
[2021-02-04] MEDS: multivitamins, therapeutics tablet PO SCH (09:27)
[2021-02-04] MEDS: LORazepam 2 mg/ml vial IV PRN ×6 (09:27→23:53)
--- NOTE | 2021-02-04 11:05 | NUR ---
ORDERED TO GIVE ATIVAN EARLY PER RUSU- 1MG . PT ASWEATING AND TACHYCARDICC
--- NOTE | 2021-02-04 11:41 | NUR ---
PAGER ID: [phone] MESSAGE: [id number] Satish Harrison: ativan is only 1mg q2hr he is still symptomatic. [id number]
[2021-02-04] MEDS: thiamine inj. 100 MG in normal saline 100ml IV soln 100 ML IV SCH (11:44)
[2021-02-04] MEDS: folic acid 1mg/0.2ml inj IV SCH (11:44)
--- NOTE | 2021-02-04 11:51 | NUR ---
md phoenix return call and entering changes to ativan
[2021-02-04] MEDS ORDERED: mag hydrox/Alum hydrox/simeth 30ml oral suspension PO PRN (12:00)
[2021-02-04] MEDS ORDERED: cyclobenzaprine 10mg tablet PO PRN (12:00)
[2021-02-04] MEDS ORDERED: cloNIDine 0.1 mg tablet PO PRN (12:00)
[2021-02-04] MEDS ORDERED: dicyclomine 10 MG capsule PO PRN (12:00)
[2021-02-04] MEDS ORDERED: thiamine inj. 100 MG in normal saline 100ml IV soln 100 ML IV ONE (12:00)
--- NOTE | 2021-02-04 12:05 | NUR ---
Yeison Consult: Yeison Jurado; skin intact per EMR. Addendum: 02/04/21 at [address] Amended: Links added.
--- NOTE | 2021-02-04 13:24 | NUR ---
pt having tremors, mild nausea, restlessness, , mildly diaphoretic. tx with ativan
[2021-02-04 14:20] LABS: ANION GAP 11 (8-16); BLOOD UREA NITROGEN 25 MG/DL (7-18); BUN/CREATININE RATIO 21.7 (5.4-32.0); CALCIUM 8.8 MG/DL (8.5-10.1); CHLORIDE 110 MMOL/L (99-107); CREATININE 1.15 MG/DL (0.60-1.10); GLUCOSE 140 MG/DL (70-104); POTASSIUM 3.3 MMOL/L (3.5-5.1); SODIUM 143 MMOL/L (135-145); TOTAL CARBON DIOXIDE 21.9 MMOL/L (24-32); eGFR 68 ML/MIN
--- NOTE | 2021-02-04 15:00 | NUR ---
Obtained verbal order from MD phoenix this AM to continue restraints
[2021-02-04 18:00] VITALS: BP 134/99
--- NOTE | 2021-02-04 18:31 | NUR ---
1730- pt following instructions, will trial off restraints
[2021-02-04 20:24] LABS: ALBUMIN 2.9 G/DL (3.4-5.0); ANION GAP 12 (8-16); BLOOD UREA NITROGEN 22 MG/DL (7-18); CHLORIDE 108 MMOL/L (99-107); CREATININE 1.05 MG/DL (0.60-1.10); GLUCOSE 100 MG/DL (70-104); POTASSIUM 3.5 MMOL/L (3.5-5.1); SODIUM 143 MMOL/L (135-145); TOTAL CARBON DIOXIDE 22.6 MMOL/L (24-32); eGFR 75 ML/MIN
[2021-02-04] MEDS: dextrose 5%-water 1,000 ML IV SCH ×2 (20:40→22:11)
[2021-02-04 22:00] VITALS: BP 155/80
[2021-02-04] MEDS: morphine 2 MG/ML inj. syringe IV PRN (22:26)
[2021-02-05 02:00] VITALS: BP 145/79
[2021-02-05] MEDS: hydrALAZINE 20mg/ml inj. IV SCH ×4 (02:32→20:15)
[2021-02-05] MEDS: LORazepam 2 mg/ml vial IV PRN ×6 (02:33→23:29)
[2021-02-05] MEDS: metoprolol tartrate 1mg/ml inj IV SCH ×2 (02:33→08:00)
[2021-02-05] MEDS: dextrose 5%-water 1,000 ML IV SCH (03:19)
--- NOTE | 2021-02-05 06:21 | NUR ---
Problems reprioritized. Patient report given, questions answered & plan of care reviewed with RADHA GILMAN.
[2021-02-05 06:24] LABS: ANION GAP 11 (8-16); BLOOD UREA NITROGEN 20 MG/DL (7-18); BUN/CREATININE RATIO 19.2 (5.4-32.0); CALCIUM 8.8 MG/DL (8.5-10.1); CHLORIDE 108 MMOL/L (99-107); CREATININE 1.04 MG/DL (0.60-1.10); GLUCOSE 105 MG/DL (70-104); MAGNESIUM 1.7 MG/DL (1.5-2.4); PHOSPHORUS 2.9 MG/DL (2.3-4.5); POTASSIUM 3.5 MMOL/L (3.5-5.1); SODIUM 143 MMOL/L (135-145); TOTAL CARBON DIOXIDE 24.3 MMOL/L (24-32); eGFR 76 ML/MIN
--- NOTE | 2021-02-05 07:06 | NUR ---
Patient in room PCU 3017. I have received report from JULIAN kaur and had the opportunity to ask questions and assume patient care.
[2021-02-05] MEDS: heparin, porcine 5000 units/ml vial SQ SCH ×2 (07:50→20:23)
[2021-02-05] MEDS: multivitamins, therapeutics tablet PO SCH ×2 (08:00→10:20)
[2021-02-05] MEDS ORDERED: multivitamins, therapeutics tablet PO SCH (08:00)
[2021-02-05] MEDS: folic acid 1mg tablet PO SCH ×2 (08:00→10:20)
[2021-02-05] MEDS: atenolol 50mg tablet PO SCH ×2 (08:00→10:24)
[2021-02-05] MEDS: thiamine 100mg tablet PO SCH ×2 (08:00→10:28)
[2021-02-05] MEDS ORDERED: folic acid inj. 2 MG, thiamine inj. 100 MG, MVI, adult No.4 with vit. K 10 ML in dextro... IV SCH ×4 (08:00)
[2021-02-05] MEDS: furosemide 40mg/4ml inj IV SCH ×2 (10:06→20:14)
[2021-02-05 11:00] VITALS: BP 116/76
[2021-02-05 18:00] VITALS: BP 120/86
--- NOTE | 2021-02-05 18:56 | NUR ---
Patient in room PCU 3017. I have received report from Renay GARCIA and had the opportunity to ask questions and assume patient care.
--- NOTE | 2021-02-05 18:56 | NUR ---
patient remains in three point restraints ativan given for DTs q 2hrly see emar. patient in and out of lucidity, still requiring sitter. loose stool x2, incontinent. report given to Francine GARCIA
[2021-02-05 20:23] VITALS: BP 107/70
[2021-02-05 21:25] LABS: ALBUMIN 2.6 G/DL (3.4-5.0); ANION GAP 13 (8-16); BLOOD UREA NITROGEN 23 MG/DL (7-18); BUN/CREATININE RATIO 22.5 (5.4-32.0); CHLORIDE 107 MMOL/L (99-107); CREATININE 1.02 MG/DL (0.60-1.10); GLUCOSE 106 MG/DL (70-104); POTASSIUM 3.1 MMOL/L (3.5-5.1); SODIUM 142 MMOL/L (135-145); TOTAL CARBON DIOXIDE 21.9 MMOL/L (24-32); eGFR 78 ML/MIN
[2021-02-05 21:49] VITALS: BP 103/56
[2021-02-06] VITALS (7 sets, daily range): BP systolic 100–148; BP diastolic 63–78
[2021-02-06] MEDS: LORazepam 2 mg/ml vial IV PRN ×3 (00:31→04:33)
[2021-02-06] MEDS: hydrALAZINE 20mg/ml inj. IV SCH ×4 (03:03→20:54)
[2021-02-06 06:39] LABS: MAGNESIUM 1.7 MG/DL (1.5-2.4); PHOSPHORUS 3.2 MG/DL (2.3-4.5)
--- NOTE | 2021-02-06 06:44 | NUR ---
Problems reprioritized. Patient report given, questions answered & plan of care reviewed with Nerissa GARCIA.
--- NOTE | 2021-02-06 06:56 | NUR ---
Patient in room PCU 3017. I have received report from RADHA Escamilla and had the opportunity to ask questions and assume patient care.
[2021-02-06] MEDS: furosemide 40mg/4ml inj IV SCH ×2 (09:59→20:54)
[2021-02-06] MEDS: thiamine 100mg tablet PO SCH (10:00)
[2021-02-06] MEDS: heparin, porcine 5000 units/ml vial SQ SCH ×2 (10:00→20:55)
[2021-02-06] MEDS: multivitamins, therapeutics tablet PO SCH (10:00)
[2021-02-06] MEDS: folic acid 1mg tablet PO SCH (10:00)
[2021-02-06] MEDS: atenolol 50mg tablet PO SCH (10:01)
[2021-02-06 13:22] LABS: ALANINE AMINOTRANSFERASE 85 U/L (12-78); ALBUMIN 2.9 G/DL (3.4-5.0); ALBUMIN/GLOBULIN RATIO 0.7 (1.1-1.5); ALKALINE PHOSPHATASE 75 IU/L (46-116); ANION GAP 13 (8-16); ASPARTATE AMINO TRANSFERASE 71 U/L (10-37); BILIRUBIN,TOTAL 0.7 MG/DL (0.1-1.0); BLOOD UREA NITROGEN 25 MG/DL (7-18); CALCIUM 9.2 MG/DL (8.5-10.1); CHLORIDE 107 MMOL/L (99-107); CREATININE 1.04 MG/DL (0.60-1.10); GLUCOSE 102 MG/DL (70-104); SODIUM 144 MMOL/L (135-145); TOTAL CARBON DIOXIDE 23.7 MMOL/L (24-32); TOTAL PROTEIN 7.1 G/DL (6.4-8.2); eGFR 76 ML/MIN
--- NOTE | 2021-02-06 13:29 | NUR ---
Paged Dr. Wheatley regarding critical result of K 3.0. PAGER ID: [phone] MESSAGE: [id number]. DIONISIO ROGERS. CRITICAL RESULT K 3.0. THANK YOU. SIGRID GARCIA X [phone]
--- NOTE | 2021-02-06 15:06 | NUR ---
Reassessment: Pt advanced to clear liquids 02/03 and full liquids 02/04 from initial 5 days NPO status. R NG now removed per EMR w/ PO fluctuating ~25% initial fulls not meeting needs. Noted initial PO documentation 0% however pt actually NPO at that time. Pt to continue full liquids though tolerating per HEADING AND PRIMING OPERATOR/MD recs; remains confused AOx1 per EMR. RD d/w RN regarding diet advancement per HEADING AND PRIMING OPERATOR discretion given day 7 inadequate nutrition. RN reports pt does not like full liquids diet and currently spitting out pills as well w/ ALOC. Receiving thiamin, folic, MVI for etoh hx. LBM 02/05. IF pt PO intake remains poor and continues to refuse meds as well as meals would benefit from alternative nutrition to meet needs. Will monitor for diet advancement per HEADING AND PRIMING OPERATOR recs and tolerance this admit. Recommendations: 1) Advance to Na restricted diet as medically indicated per HEADING AND PRIMING OPERATOR/MD recs; encourage PO 2) monitor for ONS needs once PO acceptance improves 3) Continue routine Thiamine, Folic acid, and MVI for EtOH hx 4) routine bowel care per rx 5) Scaled weight this admit; weekly scaled weights thereafter 6) IF continues to refuse meds and poor PO persists consider alternative nutrition to meets needs this admit Addendum: 02/06/21 at [address] Amended: Links added.
--- NOTE | 2021-02-06 18:00 | NUR ---
Patient in room PCU 3017. I have received report from ANKITA and had the opportunity to ask questions and assume patient care.
--- NOTE | 2021-02-06 18:33 | NUR ---
Problems reprioritized. Patient report given, questions answered & plan of care reviewed with RADHA Orourke.
[2021-02-06] MEDS ORDERED: nicotine 21mg patch - 24 hr TD ONE (23:00)
[2021-02-06] MEDS ORDERED: potassium Cl 20 mEq SR tablet PO PRN (23:20)
[2021-02-06] MEDS ORDERED: potassium Cl 40MEQ/1/2NS 520ml 520 ML IV PRN (23:20)
[2021-02-06] MEDS ORDERED: magnesium Cl slow-release 64mg tablet PO PRN (23:20)
[2021-02-06] MEDS: HYDROcodone/acetaminophen 5mg/325mg tablet PO PRN (23:30)
--- NOTE | 2021-02-06 23:59 | NUR ---
CALLED DR RODRIGUES ABOUT PT K LEVEL AT 3.0M AND ORDERED K PER PROTOCOL REPLACEMENT AND A NICOTINE PATCH PER PTS REQUEST. ORDERED BOTH Addendum: 02/07/21 at 0001 by Haven Ruiz RN POTASSIUM LEVEL CURRENTLY AT 3.0
--- NOTE | 2021-02-07 00:04 | NUR ---
CALLED DR RODRIGUES CONCERNING PTS REQUESTS FOR NAUSEA AND SLEEP, DR ORDERED ZOFRAN 4MG IVQ4H PRN, AND RESTORIL FOR SLEEP.
[2021-02-07] MEDS ORDERED: ondansetron/PF 4mg/2ml inj IV PRN (00:05)
[2021-02-07] MEDS ORDERED: temazepam 15mg capsule PO PRN (00:05)
[2021-02-07] MEDS: ondansetron/PF 4mg/2ml inj IV PRN (00:36)
[2021-02-07] MEDS: potassium Cl 20 mEq SR tablet PO PRN ×2 (00:44→08:17)
[2021-02-07 02:00] VITALS: BP 100/49
[2021-02-07] MEDS: hydrALAZINE 20mg/ml inj. IV SCH ×2 (02:00→08:00)
--- NOTE | 2021-02-07 06:00 | NUR ---
Patient in room PCU 3017. I have received report from ANNELIESE GARCIA and had the opportunity to ask questions and assume patient care.
--- NOTE | 2021-02-07 06:17 | NUR ---
Problems reprioritized. Patient report given, questions answered & plan of care reviewed with REYNALDO-RN.
[2021-02-07 06:42] LABS: MAGNESIUM 1.7 MG/DL (1.5-2.4); PHOSPHORUS 3.8 MG/DL (2.3-4.5); POTASSIUM 3.1 MMOL/L (3.5-5.1)
[2021-02-07 06:55] LABS: BASOPHILS # (AUTO) 0.1 X10'3 (0-0.2); BASOPHILS % (AUTO) 0.8 % (0-1); EOSINOPHILS # (AUTO) 0.1 X10'3 (0-0.9); EOSINOPHILS % (AUTO) 0.8 % (0-6); HEMATOCRIT 43.8 % (42.0-52.0); HEMOGLOBIN 14.7 g/dl (14.0-17.9); LYMPHOCYTES % (AUTO) 15.9 % (21-51); MEAN CORPUSCULAR HEMOGLOBIN 32.8 PG (27.0-31.0); MEAN CORPUSCULAR HGB CONC 33.6 g/dL (33.0-36.5); MEAN CORPUSCULAR VOLUME 97.7 FL (78-98); MEAN PLATELET VOLUME 10.2 FL (7.4-10.4); MONOCYTES # (AUTO) 1.3 X10'3 (0-0.9); MONOCYTES % (AUTO) 10.7 % (2-12); NEUTROPHILS % (AUTO) 71.8 % (42-75); PLATELET COUNT 211 X10'3 (140-440); RED BLOOD COUNT 4.49 X10'6 (4.70-6.10); RED CELL DISTRIBUTION WIDTH 14.6 % (11.5-14.5); WHITE BLOOD COUNT 12.5 X10'3 (4.5-11.0)
[2021-02-07 07:18] VITALS: BP 91/56
[2021-02-07 08:00] VITALS: BP_SYST 94
[2021-02-07] MEDS ORDERED: nicotine 21mg patch - 24 hr TD SCH (08:00)
[2021-02-07] MEDS: atenolol 50mg tablet PO SCH (08:00)
[2021-02-07] MEDS ORDERED: K and/or MAG REPLACEMENT MC SCH (08:00)
[2021-02-07] MEDS: HYDROcodone/acetaminophen 5mg/325mg tablet PO PRN (08:14)
[2021-02-07] MEDS: furosemide 40mg/4ml inj IV SCH (08:14)
[2021-02-07] MEDS: folic acid 1mg tablet PO SCH (08:14)
[2021-02-07] MEDS: thiamine 100mg tablet PO SCH (08:14)
[2021-02-07] MEDS: multivitamins, therapeutics tablet PO SCH (08:14)
[2021-02-07] MEDS: heparin, porcine 5000 units/ml vial SQ SCH (08:15)
[2021-02-07] MEDS ORDERED: LORA-269 PO (09:00)
[2021-02-07] MEDS ORDERED: FURO-150 PO (09:00)
--- NOTE | 2021-02-07 09:15 | NUR ---
company driver assessed patient per wound care consult for low Yeison score. No wounds or reddened areas noted. Patient ambulatory and is planning on DC this AM.
--- NOTE | 2021-02-07 10:00 | NUR ---
PT AND RECEIVED DC INSTRUCTIONS AND VERBALIZED UNDERSTANDING OF DC INSTRUCTIONS.IV AND HEART MONITOR WHERE DC AND PT WAS WHEELED TO PRIVATE VEHICLE IN ZERO DISTRESS
== END 2021-02-07 10:23 | disposition home or self-care (01) | DRG 469 ==
LOC: ER 19:04 → ED HOLD 21:39 → SUR 3N 01-30 07:55 → PCU 3S 02-01 17:15
PROVIDERS: ADMIT Internal Medicine; ATTEND Internal Medicine
DX: N17.9 Acute kidney failure, unspecified (principal); J96.01 Acute respiratory failure with hypoxia; G93.41 Metabolic encephalopathy; F10.231 Alcohol dependence with withdrawal delirium; J90 Pleural effusion, not elsewhere classified; J84.9 Interstitial pulmonary disease, unspecified; E86.0 Dehydration; I11.0 Hypertensive heart disease with heart failure; E83.39 Other disorders of phosphorus metabolism; E87.0 Hyperosmolality and hypernatremia; F32.9 Major depressive disorder, single episode, unspecified; M54.9 Dorsalgia, unspecified; G89.29 Other chronic pain; T50.905A Adverse effect of unspecified drugs, medicaments and biological substances, initial encounter; E87.6 Hypokalemia; R00.0 Tachycardia, unspecified; R13.10 Dysphagia, unspecified; R77.8 Other specified abnormalities of plasma proteins; E87.2 Acidosis; F17.210 Nicotine dependence, cigarettes, uncomplicated; I50.813 Acute on chronic right heart failure; Z78.1 Physical restraint status; Z79.899 Other long term (current) drug therapy; Y92.89 Other specified places as the place of occurrence of the external cause
CPT/HCPCS: 36415; 36600; 70450; 71045; 74018; 76770; 76937; 80048; 80053; 80305; 80320; 82140; 82150; 82550; 82803; 82948; 83605; 83690; 83735; 83880; 84100; 84132; 84145; 84295; 84443; 84484; 85018; 85025; 85610; 87040; 87081; 87088; 92508; 92616; 93005; 93306; 94760; 96372; 97110; 97116; 97161; 97530; 97535; 99285; G0378; J0360; J0696; J1630; J1644; J1940; J1956; J2060; J2270; J2405; J3411; J3490; J7030; J7040; J7070